=== PATIENT | female | born 1990 | race Caucasian/White ===

== ENCOUNTER → 2019-01-06 | Outpatient (CLI) | payer MEDICAID ==
[2019-01-07 19:30] LABS: THYROGLOBULIN AB 6.6 IU/mL (0.0-0.9)
== END ==
LOC: OD 11:06
PROVIDERS: ATTEND Pediatrics
DX: R94.5 Abnormal results of liver function studies (principal)
CPT/HCPCS: 36415; 86376

== ENCOUNTER → 2019-05-12 | Outpatient (CLI) | payer MEDICAID ==
--- NOTE | 2019-05-12 13:33 | RADIOLOGY REPORT (SQ) ---
EXAM DESCRIPTION: U/S THYROID/SFT TISS HD NECK COMPLETED DATE/TIME: 05/12/2019 1:24 pm REASON FOR STUDY: E03.9 HYPOTHYROIDISM, UNSPECIFIED E03.9 HYPOTHYROIDISM, UNSPECIFIED COMPARISON: None. TECHNIQUE: Dynamic and static dougherty-scale images acquired of the thyroid gland. Selected additional c olor/power Doppler images recorded. All images stored to PACS. LIMITATIONS: None. FINDINGS: RIGHT LOBE: Normal size. Heterogeneous in echotexture. No cystic or solid masses. LEFT LOBE: Normal size. Heterogeneous in echotexture. No cystic or solid masses. ISTHMUS: Normal size. Heterogeneous in echotexture. No cystic or solid masses. OTHER: No other significant finding. IMPRESSION: Heterogeneous echotexture throughout. No focal masses. TECHNICAL DOCUMENTATION: JOB ID: [id number] [employer]- All Rights Reserved Reading location - IP/workstation name: [email or web address]
== END ==
LOC: RAD 11:59
PROVIDERS: ATTEND Pediatrics
DX: E06.3 Autoimmune thyroiditis (principal)
CPT/HCPCS: 76536